=== PATIENT | female | born 1935 | race Caucasian/White ===

== ENCOUNTER → 2016-05-04 | Day surgery (SDC) | payer OTHER, MEDICARE ==
[~2016-05-04] MED LIST: IOPAMIDOL (ISOVUE-300) 100 ML BTL IV ONE; LIDO/EPI 1% **for epidural** 30 ML SDV ONE; SODIUM TETRADECYL SULFATE 60 MG/2 ML VIAL IV ONE
--- NOTE | 2016-05-04 17:47 | IR ---
Venography of right calf Endovenous laser ablation of right calf (2 veins) History: Painful nonhealing ulcer of lateral aspect of upper right hindfoot. Previous treatment of ri ght great saphenous vein. However, recent ultrasound demonstrated severe reflux of the lower portion of the right short saphenous vein, supplied partly by refluxing posterior tibial injector assembler vein. Consent: Risks and benefits of the procedure were discussed in detail. Informed consent was obtained . Patient accepted risks of failure to close the targeted vein, skin burn, numbness, infection, and f ailure to close the skin wound. Medication: Local anesthetic, only, at the preference of the patient. Technique: Photographs were taken with the patient standing. The skin of the right calf was labeled 1 4 cm above the floor, corresponding to previous ultrasound finding of posterior tibial injector assembler vei n. With the patient prone, the right calf was prepped and draped in sterile fashion. All elements of maximal sterile barrier technique were used, including cap, mask, sterile gown, sterile gloves, large sterile sheet, hand hygiene, and 2% chlorhexidine for cutaneous antisepsis. For ultrasound imaging guidance, the transducer and cable were placed in a sterile cover, and sterile coupling gel was used. Ultrasound evaluation of potential access sites was performed. The superficial branch of posterior tibial injector assembler vein was catheterized with a 4-Nigerien Microintroducer using ultrasound guidance. Ti p of the Microintroducer was advanced into the portion of the injector assembler vein that connected to the s hort saphenous vein. Venograms were obtained before and after pulling the catheter back to a level th at allowed adequate opacification of injector assembler vein, and frontal venography of the calf was performe d. A 5-Nigerien Microintroducer was placed in the short saphenous vein far inferiorly in the calf, lateral to the Achilles tendon. A #4 Laser fiber was inserted and extended cephalad up to the upper one thir d of the calf. Dilute Xylocaine with epinephrine was used for tumescent anesthetic, carefully instill ed around both of the targeted veins using ultrasound guidance. The short saphenous vein was treated first using 5 zheng of power, 50 Hz pulses, for a total of 1456 joules over 291 seconds of activation . The superficial tributary vein was also treated with 5 zheng, using 246 joules over 340 seconds of activation. Sterile dressings and compression stocking were applied. The patient tolerated the proced ure well and was allowed to leave the department. Fluoroscopy time: 1.8 minutes Estimated exposure in milliGray: 0.9. Findings: Venography demonstrates prompt, preferential opacification of deep veins of the lower left calf, making this access site unsuitable for sclerotherapy. (That is the reason why laser ablation o f the superficial tributary of the injector assembler was performed, rather than sclerotherapy.) Distribution of tumescent anesthetic is excellent. Impression: 1. Endovenous laser ablation of short saphenous vein of right calf and superficial tributary of poste rior tibial injector assembler. 2. Venographic findings preclude use of sclerotherapy. Plan: 1. Telephone follow up with me in one week, or sooner if questions arise. 2. Thigh high compression stockings for one week. 3. The patient has an appointment in wound clinic next week. 4. Clinical follow up with me in 2 months. - - - - - - - - - - - - - - - - - - - - - - - - - - - - - - - - - - - - - - - - - - - - (PQRS Measures: Current medications were listed in the medical record, including all known prescript ions, [id number] medications, herbal medications, and nutritional supplements. Tobacco Use: Non e. Prophylactic antibiotic: Unnecessary. VTE prophylaxis: Unnecessary.)
== END | disposition home or self-care (01) ==
LOC: FIMAGING 08:38
PROVIDERS: ATTEND Radiology Diagnostic Radiology
PROC: 065R3ZZ (ICD-10-PCS; principal; 2016-05-04)
DX: I83.015 Varicose veins of right lower extremity with ulcer other part of foot (principal); L97.919 Non-pressure chronic ulcer of unspecified part of right lower leg with unspecified severity; M79.661 Pain in right lower leg; I87.2 Venous insufficiency (chronic) (peripheral); E03.9 Hypothyroidism, unspecified; Z79.899 Other long term (current) drug therapy
CPT/HCPCS: Q9967

== ENCOUNTER → 2017-02-16 | Outpatient (CLI) | payer OTHER, MEDICARE | LOC: FIMAGING 07:35 | PROVIDERS: ATTEND Radiology Diagnostic Radiology | DX: I83.013 Varicose veins of right lower extremity with ulcer of ankle (principal); I87.2 Venous insufficiency (chronic) (peripheral) ==

== ENCOUNTER → 2017-03-23 | Day surgery (SDC) | payer OTHER, MEDICARE ==
[~2017-03-23] MED LIST changes: -IOPAMIDOL (ISOVUE-300) 100 ML BTL IV ONE; +IOPAMIDOL (ISOVUE-300) 100 ML BTL ONE; -LIDO/EPI 1% **for epidural** 30 ML SDV ONE; +SODIUM TETRADECYL SULFATE 3% 2 ML VIAL IV ONE; -SODIUM TETRADECYL SULFATE 60 MG/2 ML VIAL IV ONE
== END | disposition home or self-care (01) ==
LOC: FIMAGING 08:39
PROVIDERS: ATTEND Radiology Diagnostic Radiology
PROC: 3E033TZ Introduction of Destructive Agent into Peripheral Vein, Percutaneous Approach (ICD-10-PCS; principal; 2017-03-23)
PROC: B54BZZA Ultrasonography of Right Lower Extremity Veins, Guidance (ICD-10-PCS; principal; 2017-03-23)
DX: I83.018 Varicose veins of right lower extremity with ulcer other part of lower leg (principal); L97.819 Non-pressure chronic ulcer of other part of right lower leg with unspecified severity
CPT/HCPCS: 36012; 36471; 75820; C1769; Q9967

== ENCOUNTER 2018-02-24 15:40 | Inpatient (IN) | payer OTHER, MEDICARE ==
--- NOTE | 2018-02-24 16:04 | EDPHY ---
H & P Stated Complaint: Lifting heavy grocery bag and experienced sudden lower back pain onset 1330 Time Seen by Provider: 02/24/18 16:04 HPI/ROS: CHIEF COMPLAINT: Low back pain HISTORY OF PRESENT ILLNESS: The patient is an 82 y/o female arriving with her daughter complaining of acute onset back pain while reaching into her car and lifting a grocery bag up this afternoon. She says as she "got the bag about jail up" she had sudden low back pain. She denies prior history of back injuries or back pain. No weakness, paresthesias, radiculopathy into her legs, associated fall or trauma. No bowel or bladder problems. She has not taken anything for pain. Pain is worse when lying supine on her back and slightly less intense lying in recumbent position. No chest pain, dyspnea, recent illness , recent trauma. No significant surgeries or cardiac disease history. REVIEW OF SYSTEMS: A ten system review of systems was performed and is negative with the exception of the items mentioned in the HPI. Past medical history: Glaucoma, hypothyroidism, "high platelet problem" - hydroxyurea, hip fracture Past surgical history: Leg ablation, hip fracture repair? Family history: Noncontributory Social history: Daughter at bedside. Lives at home with her son. Former smoker, remotely. 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 Lying in left recumbent position. Vital signs reviewed. Blood pressure 136/56. Eyes: Pupils equal and round, no conjunctival injection, no discharge. Anicteric. ENT, Mouth: Mucous membranes are moist, no oropharyngeal erythema or edema. Neck: No lymphadenopathy, supple. Respiratory: Lungs are clear to auscultation; no wheezes, rales, or rhonchi. Cardiovascular: Regular rate and rhythm; 3/6 systolic murmur heard best in aortic region, no rub or gallop. Gastrointestinal: Abdomen is soft and nontender, no masses or organomegaly. Skin: Warm and dry, no rashes on exposed skin, normal color. Back: Tenderness to palpation over the lower lumbar spine at L-S junction, no other tenderness elicited. No stepoffs of deformity. No CVAT. Extremities: No lower extremity edema, no calf tenderness or swelling. Neurological: Alert and oriented. Moving all four extremities easily and equally but position of comfort is curled into position. 5-/5 strength with testing of both LEs, all major motor groups--pain with flex/ext at knee. Sensation intact to light touch over all four extremities. 1+ knee jerks bilaterally. Psychiatric: Normal affect. - Personal History Current Tetanus Diphtheria and Acellular Pertussis (TDAP): Unsure - Medical/Surgical History Hx Asthma: No Hx Chronic Respiratory Disease: No Hx Diabetes: No Hx Cardiac Disease: No Hx Renal Disease: No Hx Cirrhosis: No Hx Alcoholism: No Hx HIV/AIDS: No Hx Splenectomy or Spleen Trauma: No Other PMH: TONSILS,KNEE, HYPOTHYROID - Social History Smoking Status: Former smoker Constitutional: Initial Vital Signs Temperature (C) 36.6 C 02/24/18 15:49 Heart Rate 62 02/24/18 15:49 Respiratory Rate 16 02/24/18 15:49 Blood Pressure 136/56 H 02/24/18 15:49 O2 Sat (%) 92 02/24/18 15:49 O2 Delivery Mode Room Air O2 (L/minute) 93 Allergies/Adverse Reactions: No Known Allergies Allergy (Verified 03/22/17 16:16) Home Medications: Medication Instructions Recorded Hydroxyurea [Hydrea 500 mg (*)] 500 mg PO BID 07/23/15 Levothyroxine [Synthroid 88 mcg 88 mcg PO DAILY06 07/23/15 (*)] Cholecalciferol Vit D3 [Vitamin D3 1,000 units PO BID@1200,1800 03/22/17 (*)] Cyanocobalamin [Vitamin B12 (*)] 1,000 mcg PO DAILY@1800 03/22/17 Latanoprost 0.005% [Xalatan 0.005% 0 drops EACHEYE HS 03/22/17 (*)] Ferrous Sulfate [Ferrous Sulf 325 325 mg PO DAILY@1200 02/24/18 MG (*)] Timolol 0.5% [TIMOPTIC 0.5% (*)] 1 drops EACHEYE HS 02/24/18 Acetaminophen [Tylenol Extra 1,000 mg PO TID #30 tablet 02/27/18 Strength] Lidocaine 4%/Menthol 1% [Icy Hot 1 patch TD DAILY patch 02/27/18 Lidocaine/Menthol 4%/1% Patch (*)] Patch Removal 1 ea TD DAILY21 patch 02/27/18 amLODIPine BESYLATE [Norvasc 2.5 2.5 mg PO DAILY tab 02/27/18 mg (*)] Medical Decision Making - Diagnostics Imaging: I viewed and interpreted images myself ED Course/Re-evaluation: This is a relatively healthy 82 y/o female who presents with acute onset low back pain after bending and attempting to lift grocery bags out of her car this afternoon. She has no prior back injuries or pain. Tenderness is localized to her low lumbar/sacral spine without radiculopathy, weakness, or numbness. No incontinence. Plan for lumbar x-ray and 650mg PO Tylenol. Lumbar spine x-ray: L1 compression fracture, likely acute per radiologist. Reassessed patient. She has no pain over her L1 vertebra, but in general continues to be quite uncomfortable lying on her side. Recommended lumbar spine CT for further evaluation. 1734: Consulted with Dr. Macias, neurosurgery. He will evaluate patient in the ED. Dr. Macias examined patient and found her to have low sacral tenderness, . He recommends adding pelvic imaging. 400mg PO ibuprofen ordered for pain. Lumbar spine CT shows acute L1 compression fracture with 4-5mm retropulsion fragment, buckling of pedicles, mild to moderate stenosis. Pelvic CT: Old left inferior pubic ramus fracture, no sacral fracture. Consulted with Dr. Macias. He recommends lumbar MRI. 1839: Reassessed patient and discussed findings. She is sitting up and in significant pain to the point of vomiting, though she says the pain is slightly better upon sitting, though it "was excruciating" to get into this position. IV and 4mg IV Zofran ordered. I've recommended admission for pain and fracture management. Spoke with hospitalist service. Dr. Priest accepts admission. 2124: Consulted with Dr. Todd, neurosurgeon. He will consult during admission. This does appear to be an acute L1 compression fracture, although the location of her pain is lower than that. Differential Diagnosis: DDX includes but is not limited to fracture (open vs closed, nerve root compression/stenosis vs not), dislocation, sprain, HNP. - Data Points Laboratory Results: Laboratory Results 02/24/18 19:10 02/24/18 19:10 Medications Given: Discontinued Medications Acetaminophen (Tylenol) 650 mg PO EDNOW ONE Stop: 02/24/18 16:24 Last Admin: 02/24/18 16:43 Dose: 650 mg Acetaminophen (Tylenol) 650 mg PO Q4HRS PRN PRN Reason: Pain, Mild/Fever, Can Take PO Stop: 08/23/18 23:40 Last Admin: 02/27/18 04:08 Dose: 650 mg Hydrocodone Bitart/Acetaminophen (Fowler 5/325) 1 - 2 tab PO Q4HRS PRN PRN Reason: Pain, Moderate Able to Take PO Stop: 03/06/18 23:40 Last Admin: 02/27/18 07:41 Dose: 1 tab Amlodipine Besylate (Norvasc) 2.5 mg PO DAILY [facility] Stop: 08/25/18 16:29 Last Admin: 02/27/18 08:12 Dose: 2.5 mg Cholecalciferol (Vitamin D) 1,000 units PO BID@1200,1800 [facility] Stop: 08/24/18 11:59 Last Admin: 02/27/18 12:56 Dose: 1,000 units Fentanyl (Sublimaze) 50 mcg IVP EDNOW ONE Stop: 02/24/18 19:06 Last Admin: 02/24/18 19:06 Dose: 50 mcg Ferrous Sulfate (Ferrous Sulfate) 325 mg PO DAILY@1200 [facility] Stop: 08/24/18 11:59 Last Admin: 02/26/18 13:48 Dose: 325 mg Hydroxyurea (Hydrea) 500 mg PO BID [facility] Stop: 08/24/18 08:59 Last Admin: 02/27/18 08:12 Dose: 500 mg Ibuprofen (Motrin) 400 mg PO EDNOW ONE Stop: 02/24/18 17:36 Last Admin: 02/24/18 17:52 Dose: 400 mg Influenza Virus Vaccine Quadrival (Flulaval Quad [id number] (6mo+)) 0.5 ml IM .ONCE ONE Stop: 02/27/18 09:33 Last Admin: 02/27/18 10:05 Dose: 0.5 ml Latanoprost (Xalatan 0.005%) 1 drops EACHEYE HS [facility] Stop: 08/24/18 20:59 Last Admin: 02/26/18 20:29 Dose: 1 drop Levothyroxine Sodium (Synthroid) 88 mcg PO DAILY06 [facility] Stop: 08/24/18 05:59 Last Admin: 02/27/18 06:45 Dose: 88 mcg Miscellaneous Information (Patch Removal) 1 ea TD DAILY21 [facility] Stop: 08/24/18 20:59 Last Admin: 02/26/18 20:31 Dose: 1 ea Miscellaneous Medication (Icy Hot Lidocaine/Menthol 4%/1% Patch) 1 patch TD DAILY [facility] Stop: 08/24/18 14:44 Last Admin: 02/27/18 08:11 Dose: 1 patch Ondansetron HCl (Zofran) 4 mg IVP EDNOW ONE Stop: 02/24/18 18:52 Last Admin: 02/24/18 19:06 Dose: 4 mg Pneumococcal 13-Valent Conj Vacc (Prevnar 13 Syringe) 0.5 ml IM .ONCE ONE Stop: 02/27/18 09:33 Last Admin: 02/27/18 10:06 Dose: 0.5 ml Timolol Maleate (Timoptic 0.5%) 1 drops EACHEYE HS [facility] Stop: 08/24/18 20:59 Last Admin: 02/26/18 20:26 Dose: 1 drop Departure - Departure Disposition: [facility] Inpatient Acute Clinical Impression: Compression fracture of L1 lumbar vertebra Qualifiers: Encounter type: initial encounter Fracture type: closed Qualified Code(s): S32.010A - Wedge compression fracture of first lumbar vertebra, initial encounter for closed fracture Back pain Qualifiers: Back pain location: low back pain Chronicity: acute Back pain laterality: unspecified Sciatica presence: without sciatica Qualified Code(s): M54.5 - Low back pain Condition: Fair Report Scribed for: Shira Nicole Report Scribed by: Leeann Hernandez Date of Report: 02/24/18 Time of Report: 16:18 Physician Review and Approval Statement: 02/24/18 16:04 Portions of this note were transcribed by the medical communication specialist. I, Dr. Shira Nicole, personally performed the history, physical exam, and medical decision- making; and confirmed the accuracy of the information in the transcribed note.
[2018-02-24] MEDS ORDERED: ACETAMINOPHEN 325 MG TAB PO ONE (16:23)
[2018-02-24] MEDS ORDERED: IBUPROFEN 200 MG TAB PO ONE (17:35)
[2018-02-24] MEDS ORDERED: fentaNYL 100 MCG/2 ML INJ ONE (18:43)
[2018-02-24] MEDS ORDERED: ONDANSETRON 4 MG/2 ML VIAL ONE (18:43)
[2018-02-24] MEDS ORDERED: ONDANSETRON 4 MG/2 ML VIAL IVP ONE (18:51)
[2018-02-24] MEDS ORDERED: fentaNYL 100 MCG/2 ML INJ IVP ONE (19:05)
[2018-02-24 19:22] LABS: PLATELET COUNT 340 10^3/uL (150-400)
--- NOTE | 2018-02-24 21:21 | GCON ---
ER CONSULTATION NOTE DATE OF CONSULTATION: 02/24/2018 REASON FOR CONSULTATION: Increasing back pain, status post a lifting incident. HISTORY OF PRESENT ILLNESS: Ms. King is a very pleasant 82-year-old woman who comes to the emergency department after acute onset of low back pain after lifting some groceries in the parking lot. The patient states that while she was lifting groceries she developed acute onset of very low midline pain located near the lumbosacral junction. No tingling, numbness, pain, or weakness of the upper or lower extremities. No loss of bowel or bladder function. The patient had to have assistance from a passerby who brought the patient then home. The patient does live with her son. She was then brought to the emergency department for further evaluation and management. The patient has pain with motion but not essentially when she remains still. Pain is worse when lying supine on her back and slightly less intense when lying in a recumbent position. No history of prior spinal fractures, and there was no associated trauma. The patient states she does have a history of osteoporosis. REVIEW OF SYSTEMS: Complete 10-point review of systems was reviewed by me on patient intake form, reviewed and positive only for those noted above in HPI. PAST MEDICAL HISTORY: 1. Glaucoma. 2. Hypothyroidism. 3. History of hip fracture. 4. High platelet problem. PAST SURGICAL HISTORY: 1. Hip fracture repair. 2. Some type of ablation for the leg. FAMILY HISTORY: Negative and noncontributory. SOCIAL HISTORY: The patient lives at home with her son. She is a former smoker but currently does not use tobacco. She is not . ALLERGIES: No known drug allergies. MEDICATIONS: 1. Hydroxyurea 500 mg p.o. twice daily. 2. Levothyroxine 0.88 mcg p.o. daily. 3. Aspirin 81 mg p.o. daily. 4. Latanoprost 1 drop to each eye daily. 5. Vitamin D and vitamin B12 daily. 6. Timolol. PHYSICAL EXAMINATION: VITAL SIGNS: Temperature is 36.6, heart rate 62, respiratory rate 16. Blood pressure is 136/56. She is satting at 92% currently on room air. GENERAL: The patient is lying on her side in the gurney , is in no acute distress. She is quite pleasant and cooperative with the examination. Her daughter and granddaughter are at the bedside. HEENT: Head is atraumatic, normocephalic. Pupils are equal, round, and reactive to light bilaterally. Extraocular movements are intact. NEUROLOGIC: Cranial nerves 2- 12 are intact. Tongue protrudes midline. Uvula and palate elevate symmetrically. She has intact sensation to light touch on her face bilaterally. She has intact hearing to light conversation bilaterally. Pupils are equal, round, and reactive to light bilaterally. Extraocular movements are intact. Shoulder shrug is symmetric. 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 With knee extension and flexion, she has increased pain in her low back, so this is limited. Sensory exam shows intact sensation to light touch throughout all major dermatomes of bilateral upper and lower extremities throughout. Reflexes: She has 1+ reflexes at the bilateral brachioradialis, patella, and negative Hernandez's bilaterally. Patient has midline tenderness located near the lumbosacral junction but no palpable step- offs. MEDICAL DECISION MAKING: Patient underwent an x-ray of the lumbar spine which was reviewed by me on the [facility] PACS system on the February. There is evidence of diffuse spondylosis throughout, including osteopenia and osteoporosis. There is an age indeterminate possible acute compression deformity of L1. There is spondylosis otherwise noted from L3 through S1. ASSESSMENT AND PLAN: Ms. King is an 82-year-old woman with known history of osteoporosis and osteopenia who developed acute onset of low back pain while lifting some groceries out of the car today. The patient appears to have symptoms consistent with a compression deformity, however this is located near the lumbosacral junction. We will obtain an MRI/CT of the lumbar spine and pelvis, and based on those make some further recommendations. I did discuss with the patient and her family the usual treatments for fractures, including both kyphoplasty versus conservative management with bracing. We will make further recommendations once the imaging has been reviewed by ourselves. Please note, this was discussed with Dr. Nicole in the emergency department, and the family, who were both in agreement with this plan. /[id number]/MODL MTDD
[2018-02-24] MEDS ORDERED: ONDANSETRON 4 MG/2 ML VIAL IVP PRN (23:41)
[2018-02-24] MEDS ORDERED: ONDANSETRON DISINTEGRATING 4 MG TAB PO PRN (23:41)
[2018-02-24] MEDS ORDERED: HYDROmorphONE/DILAUDID 1 MG/ML INJ IVP PRN (23:41)
[2018-02-24] MEDS ORDERED: LIDOCAINE 4%/MENTHOL 1% PATCH TD PRN (23:47)
[2018-02-25] MEDS: ACETAMINOPHEN 325 MG TAB PO PRN ×3 (00:47→16:33)
--- NOTE | 2018-02-25 06:18 | GHP ---
DATE OF ADMISSION: 02/24/2018 SOURCE: Patient able to provide majority of the history, appears reliable. EMR was reviewed and simon e discussed with ED provider. The patient's daughter is at bedside. CHIEF COMPLAINT: Back pain. HISTORY OF PRESENT ILLNESS: Very pleasant 82-year-old female who presents to the emergency departmen t earlier today with complaints of sudden onset of low back pain. Patient reports that she was putti ng groceries in her car when she leaned over and felt pain in her lumbar spine. Patient denies any a ssociated numbness or tingling or other radicular pain. She denies any urinary or fecal retention or incontinence. Patient reports that she was in her usual state of health up until the moment where h er back pain started. She has not been ill recently. She did not have any shortness of breath. No fevers, chills. No chest pain, palpitations. Patient has known history of osteoporosis. No previou s history of vertebral fractures. In her chart has a listed history of pubic rami fractures. REVIEW OF SYSTEMS: 10-point systems are negative except as noted above. ALLERGIES: No known drug allergies. HOME MEDICATIONS: As listed per EMR. Ferrous sulfate 325 mg p.o. daily, timolol 1 drop in each eye daily, vitamin B12 1000 mcg p.o. daily, vitamin D3 1000 units p.o. b.i.d., levothyroxine 88 mcg p.o. daily. Latanoprost 0.005% in each eye at h.s., hydroxyurea 500 mg p.o. b.i.d. PAST MEDICAL HISTORY: Significant for glaucoma, thrombocytosis on hydroxyurea, osteoporosis, history of pubic rami fracture, diverticulosis without history of diverticulitis on imaging. PAST SURGICAL HISTORY: Significant for tonsillectomy, adenoidectomy, knee surgery, leg surgery, hip fracture repair. FAMILY HISTORY: Negative for osteoporosis or other bone disorders. SOCIAL HISTORY: Patient lives with son and daughter. She quit smoking remotely. She denies any oth er alcohol or illicit drug use. PHYSICAL EXAMINATION: VITAL SIGNS: Upon arrival to the emergency department, blood pressure 136/56, heart rate 62, respiratory rate 16, O2 saturation 92% on room air with a temperature 36.6. Vital si gns currently available, blood pressure 133/52, heart rate 66, respiratory rate 16, O2 saturation 97% on 2 L by nasal cannula, with temperature 36.8. GENERAL: No acute distress. Very pleasant, elderl y, frail-appearing, thin female who is lying quietly in bed on her side. She grimaces with any movem ent of her lower back. She is not in any acute distress, however. Her daughter is at bedside. HEAD : Normocephalic, atraumatic. EYES: Extraocular muscles are grossly intact. Pupils equal, round, d ecreased reactivity to light bilaterally, but symmetric. No scleral icterus or conjunctival injectio n. ENT: Mucous membranes appear moist. No oropharyngeal erythema or exudates. NECK: Supple trach ea midline. CV: Regular rate and rhythm. Slightly bradycardic low 60s. Patient has a 3/6 systolic murmur appreciated diffusely. RESPIRATORY: Unlabored breathing. Lungs are clear to auscultation b ilaterally. No wheezes, rales, or rhonchi appreciated. ABDOMEN: Positive bowel sounds. Soft, nont tiffany to palpation. No rebound, guarding, or masses appreciated. : No suprapubic tenderness to p alpation. No Rodriguez catheter in place. EXTREMITIES: No cyanosis, clubbing, or edema appreciated. P atient with 1+ pedal pulses bilaterally and symmetric. No edema. NEURO: Grossly nonfocal. No faci al drooping. Patient is a little fatigued, so exam is slightly limited, but she moves all extremitie s. Strength is generalized decreased weakness and deconditioning. She is thin and frail-appearing. She does move all extremities, however. NEURO: Grossly nonfocal no facial drooping. PSYCH: Affec t slightly flat but patient does appear fatigued. She is otherwise pleasant and cooperative. Though t process, content, and questions appropriate. Patient does not recall our meeting Dr. Macias. Edmar quezada reports that she was in severe amount of pain at the time and had received some fentanyl. Other johnson, her memory is typically quite sharp. LABORATORY STUDIES: WBC is 8.12. H and H are 10.2 and 30.2. MCV of 148.8, platelet count is 340. Neutrophil percent 85.5, 1.5% bands, 3+ oval macrocytes. Sodium 134, potassium 4.5, chloride 100, CO 2 24, anion gap 10, BUN 17, creatinine 0.5. GFR greater than 60. Glucose 109, calcium is 9.1. UA s pecific gravity of 1.017, pH of 6.0, ketones 1+, blood negative, urobilinogen 4.0, otherwise negative . IMAGING STUDIES: Images and reports reviewed. 1. Lumbar spine, 2 or 3 view: Age indeterminate, possibly acute moderate compression fracture at L1 . Osteopenia. 2. Lumbar spine CT without contrast showing L1 moderate acute subacute compression fracture with 5 m m retropulsion involving anterior posterior cortex with 2 column fracture resulting in [id number] te central canal stenosis. L4-5 with central canal stenosis secondary to moderate bilateral facet ar thropathy and disk bulge. L5-S1 moderate degenerative disk disease resulting in mild stenosis. 3. MRI lumbar spine showing L1 moderate acute versus subacute compression fracture with buckling, an terior-posterior cortex retropulsion resulting in mild central canal stenosis without cord compressio n. Diffuse abnormal bone marrow signal intensity is consistent with anemia or a lymphoproliferative disorder. L5-S1 left paramedian disk herniation, moderate degenerative disk disease, and facet arthr opathy resulting in mild central canal stenosis. No epidural hematoma. ASSESSMENT AND PLAN: A very pleasant 82-year-old female with history of an osteoporosis, now with co mplaints of sudden onset back pain with minimal exertion. 1. L1 compression fracture: Patient was already seen by Neurosurgery. They are currently recommend ing conservative management with consideration for a brace and continued therapy and pain management. MRI was ordered and was pending at time other of evaluation, and they will plan to see the patient in the morning and reassess. If patient fails conservative management at this point, plan is to cons ider a vertebroplasty. Patient's current pain has improved control except with any mobilization, so we will see how she does tomorrow. 2. Acute pain without trauma: Patient does have Tylenol currently as well as topical lidocaine patc h and Castella p.r.n. She did receive some fentanyl in the emergency department with improved control o f her acute pain. 3. Chronic medical issues: a. Osteoporosis, osteopenia: Unsure if patient has completed any treatment for this. Further discu ssion tomorrow when patient is more alert after having rested. Patient is already currently on vitam in D replacement. We will add calcium supplementation as tolerated. b. Glaucoma. Resume her home drops when med rec is available. c. History of essential thrombocytosis. Continue patient's hydroxyurea. d. Anemia, likely iron deficiency versus chronic disease. She is normally on an iron supplementatio n per home med rec. No evidence of active bleeding at this time. e. Hyponatremia, likely some mild hypovolemia. Encourage oral intake. f. Hypothyroidism. Resume patient's levothyroxine supplementation when med rec is available. 4. Fluid, electrolyte, nutrition: Saline lock IV. Encourage oral intake and supplementation. Cecy ent does not look dehydrated currently. 5. Prophylaxis. Sequential compression devices. Holding anticoagulation pending rehab evaluation i n the morning via Neurosurgery. This patient should stay additional day. Consider initiation of ant icoagulation prophylaxis. 6. COR status: We will need to further discuss when patient is a little bit [facility] DISPOSITION: Patient admitted to inpatient status on the ortho/neuro floor for additional support an d pain management. Patient was previously quite independent and currently debilitated due to her arleen n with the acute fracture. Anticipate greater than 2 midnight stay, and patient has been admitted to inpatient status. /[id number]/MODL
--- NOTE | 2018-02-25 08:41 | SOAPPROG ---
SOAP Progress Note Assessment/Plan: Assessment: 82 yo F with acute L1 compression fracture after lifting groceries Plan: neuro: stable MRI with acute L1 compression fx, no stenosis will have traveler changer fit Jewit brace this am upright x-rays of brace on today PT/OT jewit brace to be worn when out of bed please call with neuro changes 02/25/18 08:39 Subjective: continued back pain, no leg pain, no weakness. Objective: Vital Signs Temp Pulse Resp BP Pulse Ox 36.8 C 66 16 133/52 H 97 02/25/18 04:11 02/25/18 04:11 02/25/18 04:11 02/25/18 04:11 02/25/18 04:11 02/24/18 02/25/18 02/26/18 05:59 05:59 04:59 Intake Total 200 Balance 200 AAOX4, +FC PERRL, EOMI, no facial droop 5/5 + light touch ICD10 Worksheet Patient Problems: Problems Problem Status Onset Back pain Acute Compression fracture of L1 lumbar vertebra Acute
[2018-02-25] MEDS ORDERED: ENOXAPARIN 40 MG/0.4 ML SYR SC SCH (09:00)
--- NOTE | 2018-02-25 09:20 | HOSPPROG ---
Hospitalist Progress Note Assessment/Plan: Emilee King is an 82 y/o female w hx of osteoporosis who presented w acute back pain. Today is my first encounter w the patient, chart reviewed. Reviewed her care w SHARAD Campa w neurosurgery. First encounter, chart reviewed. *[id number] fx -MRI lumbar spine showing L1 moderate acute versus subacute compression fracture with buckling -Jewitt brace to be ordered -appreciate neurosurgery *pain due to the above -overall well controlled *systolic murmur -she and her daughters do not want further evaluation *Osteoporosis -check a D level *Glaucoma *anemia, macrocytic -on iron supplementation -check B12 and folate *hyponatremia *dvt prophylaxis: LMWH Subjective: Emilee is not having pain at rest. Objective: Vital Signs Temp Pulse Resp BP Pulse Ox 36.8 C 66 16 133/52 H 97 02/25/18 04:11 02/25/18 04:11 02/25/18 04:11 02/25/18 04:11 02/25/18 04:11 02/24/18 02/25/18 02/26/18 05:59 05:59 04:59 Intake Total 200 Balance 200 - Physical Exam Constitutional: no apparent distress, other (thin) Eyes: PERRL Ears, Nose, Mouth, Throat: hearing normal Cardiovascular: regular rate and rhythym, systolic murmur Respiratory: no respiratory distress Gastrointestinal: normoactive bowel sounds Skin: warm Neurologic: AAOx3 Psychiatric: interacting appropriately ICD10 Worksheet Patient Problems: Problems Problem Status Onset Back pain Acute Compression fracture of L1 lumbar vertebra Acute
[2018-02-25] MEDS: LEVOTHYROXINE 88 MCG TAB PO SCH (09:56)
--- NOTE | 2018-02-25 10:24 | ASMTCMCOM ---
CM Note CM Note Notes: Patient admitted after suffering an acute L1 compression fracture. Neurosurgery is recommending conservative treatment at this time. Per PT, patient is awaiting fitting for Jewitt brace. They will defer eval until she has the brace. Patient lives with supportive daughter and son. She is normally independent. Case Management will follow for d/c planning. Date Signed: 02/25/2018 10:24 AM Electronically Signed By:Esme Thompson RN
--- NOTE | 2018-02-25 11:05 | PDMN ---
Medical Necessity Medical necessity: Pt meets IP criteria per MD & RUDDY REBOLLEDO (Musculoskeletal Disease); est los >2 mn for eval/tx of L1 compression fx w/acute pain; admit for further monitoring, Neurosurgery consult, MRI, pain management & therapies; comorbid advanced age; per H&P & order 02/24/18
[2018-02-25] MEDS: HYDROXYUREA 500 MG CAP PO SCH ×2 (12:16→20:12)
[2018-02-25] MEDS: CHOLECALCIFEROL VIT D3 1,000 UNITS TAB PO SCH ×2 (13:18→19:05)
[2018-02-25] MEDS: FERROUS SULFATE 325 MG TAB PO SCH (13:18)
[2018-02-25] MEDS: LIDOCAINE 4%/MENTHOL 1% PATCH TD SCH (16:33)
[2018-02-25] MEDS: LATANOPROST 0.005% 2.5 ML OPHT DROPS EACHEYE SCH (20:13)
[2018-02-25] MEDS: TIMOLOL 0.5% 15 ML OPHT.BTL EACHEYE SCH (20:16)
[2018-02-25] MEDS: HYDROCODONE/APAP 5/325 TAB PO PRN (20:32)
[2018-02-25] MEDS: PATCH REMOVAL 1 EA PATCH TD SCH (20:33)
[2018-02-25] MEDS ORDERED: PATCH REMOVAL 1 EA PATCH TD SCH (21:00)
[2018-02-26] MEDS: ACETAMINOPHEN 325 MG TAB PO PRN ×4 (00:29→20:21)
[2018-02-26] MEDS: LEVOTHYROXINE 88 MCG TAB PO SCH (05:19)
[2018-02-26] MEDS: HYDROCODONE/APAP 5/325 TAB PO PRN (05:19)
--- NOTE | 2018-02-26 06:35 | SOAPPROG ---
DAGO Progress Note Assessment/Plan: Assessment: 82 yo F with acute L1 compression fracture after lifting groceries Plan: neuro: stable MRI with acute L1 compression fx, no stenosis Jewit brace to be worn when out of bed upright x-rays of brace on today PT/OT please call with neuro changes ok to discharge if pain controlled and upright x-rays are stable follow up with Dr Macias in 2 weeks with repeat x-rays of lumbar spine, [phone] to schedule appointment 02/25/18 08:39 02/26/18 06:33 Subjective: continued back pain, no leg pain, no weakness. Jewit brace helps some. Objective: Vital Signs Temp Pulse Resp BP Pulse Ox 36.6 C 74 15 150/61 H 95 02/26/18 04:00 02/26/18 04:00 02/26/18 04:00 02/26/18 04:00 02/26/18 04:00 02/25/18 02/26/18 02/27/18 06:59 05:59 05:59 Intake Total Output Total Balance AAOx4, +FC PERRL, EOMI, no facial drop 5/5 + light touch ICD10 Worksheet Patient Problems: Problems Problem Status Onset Back pain Acute Compression fracture of L1 lumbar vertebra Acute
[2018-02-26] MEDS: HYDROXYUREA 500 MG CAP PO SCH ×2 (09:42→20:20)
[2018-02-26] MEDS: LIDOCAINE 4%/MENTHOL 1% PATCH TD SCH (09:42)
--- NOTE | 2018-02-26 13:31 | HOSPPROG ---
Hospitalist Progress Note Assessment/Plan: Emilee King is an 82 y/o female w hx of osteoporosis who presented w acute back pain. *D2eexcnidmnic fx -MRI lumbar spine showing L1 moderate acute versus subacute compression fracture with buckling -Jewitt brace -appreciate neurosurgery -therapies are recommending SNF for strengthening *pain due to the above -overall well controlled *underweight w a BMI of 19 -will ask probe operator to see -she has a poor appetite *systolic murmur -she and her daughters do not want further evaluation *Osteoporosis -D level stable *Glaucoma *anemia, macrocytic -on iron supplementation -B12 and folate stable *hyponatremia *dvt prophylaxis: LMWH *plan: will ask dietary to see her, ask CM to discuss SNF options, check a TSH if one hasn't been done recnelty Subjective: Emilee is tired, has no complaints. Objective: Vital Signs Temp Pulse Resp BP Pulse Ox 37.0 C 79 14 143/61 H 96 02/26/18 08:00 02/26/18 08:00 02/26/18 08:00 02/26/18 08:00 02/26/18 08:00 02/25/18 02/26/18 02/27/18 06:59 05:59 05:59 Intake Total Output Total Balance - Physical Exam Constitutional: no apparent distress, other (thin) Eyes: PERRL Ears, Nose, Mouth, Throat: hearing normal Cardiovascular: regular rate and rhythym, systolic murmur Respiratory: no respiratory distress Gastrointestinal: normoactive bowel sounds Skin: warm Musculoskeletal: generalized weakness Neurologic: AAOx3 Psychiatric: interacting appropriately ICD10 Worksheet Patient Problems: Problems Problem Status Onset Back pain Acute Compression fracture of L1 lumbar vertebra Acute
[2018-02-26] MEDS: CHOLECALCIFEROL VIT D3 1,000 UNITS TAB PO SCH ×2 (13:48→18:40)
[2018-02-26] MEDS: FERROUS SULFATE 325 MG TAB PO SCH ×2 (13:48)
--- NOTE | 2018-02-26 15:22 | ASMTCMCOM ---
CM Note CM Note Notes: Spoke to daughter and patient about SNF Rehab. They would like to go to [facility]. Referral sent. Date Signed: 02/26/2018 03:21 PM Electronically Signed By:Isabella Pedraza LCSW
[2018-02-26] MEDS: TIMOLOL 0.5% 15 ML OPHT.BTL EACHEYE SCH (20:26)
[2018-02-26] MEDS: LATANOPROST 0.005% 2.5 ML OPHT DROPS EACHEYE SCH (20:29)
[2018-02-26] MEDS: PATCH REMOVAL 1 EA PATCH TD SCH (20:31)
[2018-02-27] MEDS: ACETAMINOPHEN 325 MG TAB PO PRN (04:08)
[2018-02-27] MEDS: LEVOTHYROXINE 88 MCG TAB PO SCH (06:45)
--- NOTE | 2018-02-27 07:22 | NEUSURGPN ---
Assessment/Plan: Assessment: 82 yr old F with acute L1 compression fracture, no stenosis Plan: -Jewitt brace to be worn when out of bed-pain tolerable per patient report -upright x-rays 02/26 show progressive height loss, no retropulsion -PT/OT -please call with neuro changes -ok to discharge from neurosurgery standpoint -discussed patient with Dr Macias -follow up with Dr Macias in 6 weeks with repeat x-rays of lumbar spine, to schedule appointment Subjective: laying in bed, resting. States she is tolerating brace Objective: AxO x3 PEÑA x4 5/5 BLE, BUE Sensation intact to light touch BLE Tender to palpation lumbar spine Neuro Check Frequency: per routine Urinary Catheter in Place: No - Physician Discussed Patient with Dr.: Macias Neurosurgery Physical Exam - Vitals, I&O, Labs I and O 02/26/18 02/27/18 02/28/18 05:59 05:59 05:59 Intake Total 650 Output Total Balance 650 Intake: Oral (ml) 650 Output: Urine (ml) Bedside Commode Toilet Other: Number of Voids Bedside Commode Toilet 1 Vital Signs Temp Pulse Resp BP Pulse Ox 36.7 C 77 16 108/68 93 02/26/18 23:36 02/26/18 23:36 02/26/18 23:36 02/26/18 23:36 02/26/18 23:36 ICD10 Worksheet Patient Problems: Problems Problem Status Onset Back pain Acute Compression fracture of L1 lumbar vertebra Acute
[2018-02-27] MEDS: HYDROCODONE/APAP 5/325 TAB PO PRN (07:41)
[2018-02-27 08:08] VITALS: BP 164/68
[2018-02-27] MEDS: LIDOCAINE 4%/MENTHOL 1% PATCH TD SCH (08:11)
[2018-02-27] MEDS: HYDROXYUREA 500 MG CAP PO SCH (08:12)
[2018-02-27] MEDS ORDERED: PNEUMOC 13-VAL CONJ-DIP CRM/PF 0.5 ML SYR IM ONE (09:32)
--- NOTE | 2018-02-27 12:12 | HOSPPROG ---
Hospitalist Progress Note Assessment/Plan: Emilee King is an 82 y/o female w hx of osteoporosis who presented w acute back pain. *[id number] fx -MRI lumbar spine showing L1 moderate acute versus subacute compression fracture with buckling -Jewitt brace -appreciate neurosurgery -therapies are recommending SNF for strengthening *pain due to the above -overall well controlled *underweight w a BMI of 19 -dietary saw her -she has a poor appetite *systolic murmur -she and her daughters do not want further evaluation *overall weakness -TSH stable, patient is very weak and sleepy, explained to the family it could be r/t to her heart, they would like to hold on the echo *Osteoporosis -D level stable *Glaucoma *anemia, macrocytic -on iron supplementation -B12 and folate stable -mild iron deficiency noted in labs *hyponatremia *dvt prophylaxis: LMWH *plan: dc today Subjective: Emilee has no complaints, she is tired. Objective: Vital Signs Temp Pulse Resp BP Pulse Ox 36.7 C 82 18 164/68 H 90 L 02/27/18 08:00 02/27/18 08:00 02/27/18 08:00 02/27/18 08:12 02/27/18 08:00 02/26/18 02/27/18 02/28/18 05:59 05:59 05:59 Intake Total 650 Output Total Balance 650 - Physical Exam Constitutional: chronically ill appearing, other (thin) Eyes: PERRL Ears, Nose, Mouth, Throat: hearing normal Cardiovascular: regular rate and rhythym, systolic murmur Respiratory: no respiratory distress Skin: warm Musculoskeletal: generalized weakness Neurologic: AAOx3 Psychiatric: flat affect ICD10 Worksheet Patient Problems: Problems Problem Status Onset Back pain Acute Compression fracture of L1 lumbar vertebra Acute
[2018-02-27] MEDS: CHOLECALCIFEROL VIT D3 1,000 UNITS TAB PO SCH (12:56)
--- NOTE | 2018-02-27 12:56 | PDIAF ---
- Diagnosis Diagnosis: L1 compression fracture, weakness - Medication Management Discharge Medications: electronically signed and located in the Home Medication List. - Orders Services needed: Physical Therapy, Occupational Therapy Diet Recommendation: no restrictions on diet Diet Texture: Regular Texture Diet (recommend calorie count) Additional Instructions: No bending or twisting Do not lift greater than 10 pounds Wear brace when out of bed follow up with Dr aBrrientos in 6 weeks for a repeat back x ray [phone] recommending calorie count at rehab - Follow Up Care Current Providers and Referrals: NONE *PRIMARY CARE P,. [Unknown] - As per Instructions Thuan Barrientos MD [Medical Doctor] - follow up as scheduled (Follow up in 6 weeks with new lumbar xrays )
--- NOTE | 2018-02-27 14:06 | ASMTLACE ---
LILY Length of stay for Answers: 3 days current admission Acuity / Level of Answers: Yes Care: Did the patient have an inpatient admission? # of Emergency department Answers: 1-2 visits in the last 6 months Score: 7 Date Signed: 02/27/2018 01:46 PM Electronically Signed By:LENORA Gtz
--- NOTE | 2018-02-27 14:09 | ASDISCHSUM ---
Discharge Information Plan Status:SNF Medically Cleared to Leave:02/26/2018 Discharge Date:02/26/2018 CM D/C Disposition:[facility] Facility ADT D/C Disposition: Projected Discharge Date:02/27/2018 11:00 AM Transportation at D/C:Wheelchair Van Discharge Delay Reason: Follow-Up Date:02/27/2018 11:00 AM Discharge Slot: Final Diagnosis:L1 Compression fx Placement Information Referral Type:*Usp/SNF Referral ID:[id number] Provider Name:[facility] Address 1:[address] Address 2: City:[place] Selection Factors: State:[place] Patient Contact Information Contact Name:JORDON Relationship:Daughter Address:[address] City:[place] Alternate Phone: State/Zip Code:[place] [address] Email: Financial Information Financial Class:Medicare Primary Plan Desc:MEDICARE INPATIENT Primary Plan Number:[id number] Secondary Plan Desc:[employer]/MDR SUPPLEMENT Secondary Plan Number:[id number] Assessment Information LACE LACE Length of stay for Answers: 3 days current admission Acuity / Level of Answers: Yes Care: Did the patient have an inpatient admission? # of Emergency department Answers: 1-2 visits in the last 6 months Score: 7 Date Signed: 02/27/2018 01:46 PM Electronically Signed By:LENORA Gtz CARLOS ASHLEY Progress Note CM Note CM Note Notes: Patient admitted after suffering an acute L1 compression fracture. Neurosurgery is recommending conservative treatment at this time. Per PT, patient is awaiting fitting for Jewitt brace. They will defer eval until she has the brace. Patient lives with supportive daughter and son. She is normally independent. Case Management will follow for d/c planning. Date Signed: 02/25/2018 10:24 AM Electronically Signed By:Esme Thompson RN [facility] CM Progress Note CM Note CM Note Notes: Spoke to daughter and patient about SNF Rehab. [facility] Referral sent. Date Signed: 02/26/2018 03:21 PM Electronically Signed By:Isabella Pedraza LCSW Case Management Discharge Plan Note Case Management Discharge Discharge Order Complete? Answers: Yes Patient to Obtain Answers: Other Notes: [facility] Transportation Arranged Answers: Other Notes: [facility] Transport will Pick (Date 02/27/2018 03:00 PM & Time) Faxed Final Orders Answers: Yes Agency/Facility Transfer Answers: Yes Report Printed & Faxed to Receiving Agency Discharge Comments Notes: Pt is discharging to [facility] today. D/C order, meds, facility transfer sent via [facility]. Transportation arranged by [facility]. Date Signed: 02/27/2018 01:48 PM Electronically Signed By:LENORA Gtz Intervention Information Intervention Type:*IM-Signed Date of Service:02/27/2018 01:56 PM Patient Type:Inpatient Staff Member:Brittanie Hughes Hours: Discipline: Severity: Comment:
--- NOTE | 2018-02-27 14:58 | GDS ---
DISCHARGE DIAGNOSES: 1. L1 compression fracture, most likely secondary to osteoporosis. 2. Pain due to this. 3. Underweight with a body mass index of 19. 4. Systolic murmur. 5. Overall weakness. 6. Osteoporosis. 7. Glaucoma. 8. Anemia, macrocytic, and also microcytic. 9. Hyponatremia. CONSULTATION: Dr. Macias with neurosurgical services. HISTORY: Briefly, the patient is an 82-year-old woman who presented to the emergency room with compl aints of sudden onset of low back pain. She was putting her groceries in her car when she leaned ove r and felt pain in the lumbar spine. She denies any numbness or tingling. She had an MRI of the spi ne, which showed an L1 moderate acute versus subacute compression fracture with buckling, anterior-po sterior cortex retropulsion, resulting in mild canal stenosis without cord compression, L5-S1 left pa ramedian disk herniation with moderate degenerative disk disease and facet arthropathy, resulting in mild central canal stenosis. No epidural hematoma. She also had a lumbar CT without contrast showin g L1 moderate subacute compression fracture with 5 mm of retropulsion involving the anterior-posterio r cortex with 2-column fracture resulting in mild to moderate central canal stenosis. L4-L5 is with central canal stenosis secondary to moderate bilateral facet arthropathy and disk bulge. L5-S1 shows moderate degenerative disk disease resulting in mild stenosis. She was subsequently seen by [facility]. Their recommendation was conservative care with a brace. She will follow up with them in the outpatient setting in 6 weeks for further evaluation. HOSPITAL COURSE: 1. L1 compression fracture, most likely secondary to osteoporosis. She is wearing a [place] brace. She will go [facility] facility for rehab. 2. Pain due to the above. Have placed her on scheduled Tylenol because she is too sedate with any n arcotics. 3. Underweight with a BMI of 19. Dietary saw her. She has been taking protein shakes. 4. Systolic murmur. She and her daughters do not want further evaluation. 5. Overall weakness. A TSH was checked, which is stable. She is very weak. Explained that this co uld also be secondary to her heart. They do not want any further workup. 6. Osteoporosis, vitamin D stable. 7. Glaucoma. Eyedrops resumed. 8. Anemia. She has a mixed anemia, noted to be macrocytic. B12 and folate are stable. She has mil d iron deficiency noted in her labs. 9. Hyponatremia, mild. Her most recent sodium was 134. DISCHARGE CONDITION: Stable. Blood pressure is 164/68, heart rate of 82, respiratory rate of 18, O2 sats on room air 90%, temperature 36.7 Celsius. DISCHARGE MEDICATIONS: Please see the EMR. DISCHARGE INSTRUCTIONS: 1. To follow up with Dr. Macias in 6 weeks. 2. To wear the brace when she is out of bed. 3. No bending or twisting. 4. Do not lift greater than 10 pounds. Greater than 30 minutes discharging and coordinating the patient's care. Copy requested to: Dr. Macias /[id number]/MODL
== END 2018-02-27 15:30 | DRG 543 ==
LOC: F3N 22:51
PROVIDERS: ADMIT Internal Medicine; ATTEND Student in an Organized Health Care Education/Training Program
DX: M80.08XA Age-related osteoporosis with current pathological fracture, vertebra(e), initial encounter for fracture (principal); E87.1 Hypo-osmolality and hyponatremia; E86.1 Hypovolemia; R53.1 Weakness; D50.9 Iron deficiency anemia, unspecified; D52.0 Dietary folate deficiency anemia; R63.6 Underweight; Z68.1 Body mass index [BMI] 19.9 or less, adult; R01.1 Cardiac murmur, unspecified; E03.9 Hypothyroidism, unspecified; D47.3 Essential (hemorrhagic) thrombocythemia; H40.9 Unspecified glaucoma; Z87.891 Personal history of nicotine dependence; Z23 Encounter for immunization
CPT/HCPCS: 82607-90; 96374; 97110-GP; 97116-GP; 97161-GP; 97165-GO; 97530-GP; G0008; G0009; G8978-GP-CJ; G8979-GP-CI; G8987-GO-CL; G8988-GO-CI; J2405; J3010

== ENCOUNTER → 2018-04-07 | Outpatient (CLI) | payer OTHER, MEDICARE | LOC: FIMAGING 08:28 | PROVIDERS: ATTEND Physician Assistant | DX: S32.010D Wedge compression fracture of first lumbar vertebra, subsequent encounter for fracture with routine healing (principal); M51.37 Other intervertebral disc degeneration, lumbosacral region; M41.86 Other forms of scoliosis, lumbar region ==

== ENCOUNTER → 2018-06-09 | Outpatient (CLI) | payer OTHER, MEDICARE | LOC: FIMAGING 13:04 | PROVIDERS: ATTEND Neurological Surgery | DX: M48.56XA Collapsed vertebra, not elsewhere classified, lumbar region, initial encounter for fracture (principal) ==